=== PATIENT | male | born 1980 | race Caucasian/White ===

== ENCOUNTER 2017-05-24 23:05 | Emergency (ER) | payer BC ==
[~2017-05-24] VITALS: Ht 170.2 cm; Wt 108.9 kg
[2017-05-24] MEDS ORDERED: IPRATROPIUM BROMIDE 0.5 MG/2.5 ML NEBU NEB ONE (23:40)
[2017-05-24] MEDS ORDERED: ALBUTEROL SULFATE 2.5 MG/ 0.5 ML NEBU NEB ONE (23:45)
[2017-05-24 23:56] LABS: BASOPHILS % (AUTO) 0.5 % (0.0-2.0); EOSINOPHILS # (AUTO) 0.3 K/uL (0.0-0.7); EOSINOPHILS % (AUTO) 3.6 % (0.0-7.0); HEMOGLOBIN 15.6 G/DL (14.0-18.0); LYMPHOCYTES # (AUTO) 2.7 K/UL (0.8-4.8); LYMPHOCYTES % (AUTO) 34.9 % (20.5-51.5); MEAN CORPUSCULAR HEMOGLOBIN 29.3 UUG (27.0-31.0); MEAN CORPUSCULAR HGB CONC 34 g/dL (32.0-37.0); MEAN CORPUSCULAR VOLUME 86.7 FL (82.0-92.0); MONOCYTES # (AUTO) 0.7 K/UL (0.1-1.30); MONOCYTES % (AUTO) 8.7 % (0.0-11.0); NEUTROPHILS % (AUTO) 52.3 % (38.5-71.5); PLATELET COUNT (AUTO) 258 K/UL (150-450); RED BLOOD CELL COUNT(AUTO) 5.31 MIL/UL (4.7-6.1); WHITE BLOOD COUNT (AUTO) 7.7 K/UL (4.0-11.2)
[2017-05-25] MEDS ORDERED: ALBUTEROL SULFATE 2.5 MG/ 0.5 ML NEBU ONE (00:01)
[2017-05-25] MEDS ORDERED: IPRATROPIUM BROMIDE 0.5 MG/2.5 ML NEBU ONE (00:01)
[2017-05-25 00:09] LABS: CREATININE 1.1 mg/dL (0.6-1.3)
[2017-05-25 00:15] LABS: BILIRUBIN,TOTAL 0.3 mg/dL (0.2-1.0); TOTAL PROTEIN, SERUM 7.7 g/dL (6.4-8.2)
[2017-05-25] MEDS ORDERED: predniSONE 20 MG TABLET PO ONE (00:19)
[2017-05-25] MEDS ORDERED: predniSONE 20 MG TABLET ONE (00:37)
[2017-05-25] MEDS ORDERED: AZITHROMYCIN 250 MG TABLET PO ONE (00:45)
--- NOTE | 2017-05-25 00:47 | NUR ---
MSE COMPLETED,MEDS ADMINISTERED, PT D/C'D HOME, ACI/RX [id number]. PT GOT DRESSED AND AMBULATED W/O DIFF/TOOK ALL BELONGINGS.
[2017-05-25 00:51] VITALS: BP 140/79
[2017-05-25] MEDS ORDERED: AZITHROMYCIN 250 MG TABLET ONE (00:59)
== END 2017-05-25 00:51 | disposition home or self-care (01) ==
LOC: ER 23:07
DX: J40 Bronchitis, not specified as acute or chronic (principal)
CPT/HCPCS: 36415; 70030-TC; 71010; 85025; 93005; A4663; J3590; J7512; Q0144

== ENCOUNTER 2021-03-07 20:29 | Emergency (ER) | payer BC ==
[~2021-03-07] VITALS: Ht 167.6 cm; Wt 108.9 kg
--- NOTE | 2021-03-07 20:45 | NUR ---
Pt ambulated to ER with c/o chest pressure sensation, non-radiating, 6/10 pain 1 hr ULTRASONIC TESTER, denies any pain/discomfort at this time and states he feels better now. He states this has been feeling this off-and-on for 6 months now. A/O x4, no SOB or labored breathing, afebrile. Clear speech, complete sentences. All pulses palpable.
--- NOTE | 2021-03-07 20:46 | NUR ---
Dr. Harrell at bedside, MSE in progress.
[2021-03-07] MEDS: ASPIRIN 325 MG TABLET PO ONE (21:00)
[2021-03-07] MEDS ORDERED: ASPIRIN 325 MG TABLET ONE (21:08)
[2021-03-07 21:19] LABS: HEMATOCRIT 46.6 % (36.7-47.1); MEAN CORPUSCULAR HEMOGLOBIN 29.5 uug (23.8-33.4); MEAN CORPUSCULAR VOLUME 87.4 fL (73.0-96.2); PLATELET COUNT (AUTO) 300 K/uL (152-348)
[2021-03-07 21:26] LABS: CREATININE 1.4 mg/dL (0.6-1.3); POTASSIUM 3.6 mmol/L (3.5-5.1)
[2021-03-07 21:38] LABS: BILIRUBIN,DIRECT 0.1 mg/dL (0.0-0.2); BILIRUBIN,TOTAL 0.4 mg/dL (0.2-1.0); TOTAL PROTEIN, SERUM 7.6 g/dL (6.4-8.2)
--- NOTE | 2021-03-07 22:49 | NUR ---
Patient does not wish to proceed with medical care recommended by Dr. Harrell. Pt is A/O x4, no SOB or labored breathing. Denies any pain/discomfort. No n/v/d. Patient given information related to possible complications, up to and including , which could occur as a result of leaving the hospital at this time. Patient verbalizes understanding of risks involved due to leaving against medical advice. Patient has signed AMA form. Steady gait.
[2021-03-07 22:53] VITALS: BP 147/97
== END 2021-03-07 22:50 | disposition left against medical advice (07) ==
LOC: ER 20:30
DX: R07.9 Chest pain, unspecified (principal); R06.02 Shortness of breath; Z87.09 Personal history of other diseases of the respiratory system; Z82.49 Family history of ischemic heart disease and other diseases of the circulatory system; F17.210 Nicotine dependence, cigarettes, uncomplicated
CPT/HCPCS: 36415; 70030-TC; 71045; 85025; 93005; A4663